=== PATIENT | male | born 1980 | race American Indian/Alaskan Native ===

== ENCOUNTER 2018-01-10 02:22 | Emergency (ER) | payer SELFPAY ==
[2018-01-10] MEDS ORDERED: CATAPRES PO ONE (03:19)
[2018-01-10] MEDS ORDERED: ZESTRIL PO ONE (03:19)
[2018-01-10] MEDS ORDERED: HCTZ PO ONE (03:19)
[2018-01-10] MEDS ORDERED: TYLENOL PO ONE (03:21)
[2018-01-10 03:45] LABS: Mean Corpuscular HGB Conc 32 % (32-34)
[2018-01-10 03:52] LABS: Basophils # (Auto) 0.1 K/mm3 (0.0-0.1); Basophils % (Auto) 0.7 % (0.0-1.8); Eosinophils # (Auto) 0.1 K/mm3 (0.0-0.4); Eosinophils % (Auto) 0.9 % (0.0-4.3); Lymphocytes # (Auto) 3.6 K/mm3 (1.2-5.4); Lymphocytes % (Auto) 44.7 % (13.4-35.0); Mean Corpuscular Hemoglobin 28 pg (28-32); Mean Corpuscular Volume 87 fl (84-94); Monocytes # (Auto) 0.5 K/mm3 (0.0-0.8); Monocytes % (Auto) 5.9 % (0.0-7.3); Platelet Count 228 K/mm3 (140-440); Red Blood Count 5.09 M/mm3 (3.65-5.03); Red Cell Distribution Width 15.2 % (13.2-15.2)
[2018-01-10 04:08] LABS: BUN/Creatinine Ratio 9; Blood Urea Nitrogen 8 mg/dL (9-20); Calcium 9.5 mg/dL (8.4-10.2); Hemolysis Index 154
--- NOTE | 2018-01-10 04:10 | Cat Scan Report ---
FINAL REPORT EXAM: CT HEAD/BRAIN WO CON HISTORY: MONACO elevated BP TECHNIQUE: Routine axial imaging was obtained of the brain without IV contrast. FINDINGS: There is no evidence of acute stroke or hemorrhage. The ventricular system is appropriate in size. The basal cisterns appear normal. The visualized sinuses are clear. The mastoid air cells are well pneumatized. The calvarium appears intact. IMPRESSION: No acute intracranial process.
[2018-01-10 06:39] VITALS: BP 160/92
== END 2018-01-10 07:45 | disposition left against medical advice (07) ==
LOC: ED 02:22
DX: R51 Headache (principal); Z53.21 Procedure and treatment not carried out due to patient leaving prior to being seen by health care provider
CPT/HCPCS: 36415; 70450; 80048; 85025

== ENCOUNTER 2018-04-17 21:48 | Emergency (ER) | payer SELFPAY ==
[2018-04-17 22:44] VITALS: BP 160/116
== END 2018-04-18 05:00 | disposition left against medical advice (07) ==
LOC: ED 21:48
DX: M79.605 Pain in left leg (principal); Z53.21 Procedure and treatment not carried out due to patient leaving prior to being seen by health care provider